=== PATIENT | female | born 1985 | race Two or more races ===

== ENCOUNTER 2017-11-26 14:28 | Emergency (ER) | payer SELFPAY ==
[~2017-11-26] VITALS: Ht 160 cm; Wt 62.1 kg
[2017-11-26 16:19] VITALS: BP 105/72
== END 2017-11-26 16:47 | disposition home or self-care (01) ==
LOC: ER 14:41
DX: S80.01XA Contusion of right knee, initial encounter (principal); W01.0XXA Fall on same level from slipping, tripping and stumbling without subsequent striking against object, initial encounter; Y93.89 Activity, other specified; Y99.8 Other external cause status; Y92.89 Other specified places as the place of occurrence of the external cause
CPT/HCPCS: 73562